=== PATIENT | male | born 1955 | race Caucasian/White ===

== ENCOUNTER 2018-01-02 20:04 | Observation (INO) | payer BC ==
[2018-01-02 20:50] LABS: Basophils % (A) 0 %; Eosinophils # (A) 0.4 k/uL (0-0.7); Eosinophils % (A) 4 %; HCT 42.4 % (39.0-53.0); HGB 13.7 gm/dL (13.0-17.5); Lymphocytes # (A) 2.3 k/uL (1.0-4.8); Lymphocytes % (A) 24 %; MCH 29.8 pg (25.0-35.0); MCHC 32.4 g/dL (31.0-37.0); MCV 91.9 fL (80.0-100.0); Mean Platelet Volume 7.4; Monocytes # (A) 0.5 k/uL (0-1.0); Monocytes % (A) 5 %; Neutrophils % (A) 65 %; Platelet Count 187 k/uL (150-450); RBC 4.62 m/uL (4.30-5.90); RDW 13.6 % (11.5-15.5); WBC 9.3 k/uL (3.8-10.6)
[2018-01-02 21:04] LABS: Creatine Kinase 122 U/L (55-170)
--- NOTE | 2018-01-02 21:05 | ED ---
General Adult HPI - General Source: patient, family, RN notes reviewed, old records reviewed Mode of arrival: ambulatory <Nikhil Greene - Last Filed: 01/02/18 21:06> <Joshua Palma - Last Filed: 01/02/18 23:22> - General Chief complaint: Chest Pain Stated complaint: Chest pain Time Seen by Provider: 01/02/18 20:08 - History of Present Illness Initial comments: This is a 60-year-old male the ER for evaluation of chest pain left shoulder pain. Patient has 3-4 days of persistent left shoulder pain neck pain and pain down left arm. Patient does have significant history of heart disease history of cardiac stents. Patient had no pain during any of his prior cardiac issues. Patient denies any other injury, no exacerbating factors for pain. No significant shortness of breath (Nikhil Greene) - Related Data Home Medications Medication Instructions Recorded Confirmed Acetaminophen [Tylenol Extra 1,000 mg PO Q6H PRN 01/02/18 01/02/18 Strength] Apixaban [Eliquis] 5 mg PO BID 01/02/18 01/02/18 Aspirin [Adult Low Dose Aspirin EC] 81 mg PO DAILY 01/02/18 01/02/18 Cholecalciferol (Vitamin D3) 2,000 unit PO DAILY 01/02/18 01/02/18 [Vitamin D3] Latanoprost Ophth [Xalatan 0.005%] 1 drops BOTH EYES HS 01/02/18 01/02/18 Metoprolol Tartrate [Lopressor] 100 mg PO BID 01/02/18 01/02/18 Nitroglycerin Sl Tabs [Nitrostat] 0.4 mg SUBLINGUAL Q5M PRN 01/02/18 01/02/18 Pantoprazole Sodium [Protonix] 40 mg PO DAILY 01/02/18 01/02/18 Rosuvastatin Calcium [Crestor] 5 mg PO DAILY 01/02/18 01/02/18 Allergies Allergy/AdvReac Type Severity Reaction Status Date / Time No Known Allergies Allergy Verified 01/02/18 20:54 Review of Systems ROS Other: All systems not noted in ROS Statement are negative. <Nikhil Greene - Last Filed: 01/02/18 21:06> ROS Other: All systems not noted in ROS Statement are negative. <Joshua Palma - Last Filed: 01/02/18 23:22> ROS Statement: Those systems with pertinent positive or pertinent negative responses have been documented in the HPI. Past Medical History Past Medical History: Coronary Artery Disease (CAD), Chest Pain / Angina Additional Past Medical History / Comment(s): brain tumor, kidney stones, open heart, History of Any Multi-Drug Resistant Organisms: None Reported Additional Past Surgical History / Comment(s): cardiac stents 05/25, open heart , atrial septal defect, Past Psychological History: No Psychological Hx Reported Smoking Status: Never smoker Past Alcohol Use History: Daily Past Drug Use History: None Reported <Nikhil Greene - Last Filed: 01/02/18 21:06> General Exam General appearance: alert, in no apparent distress Head exam: Present: atraumatic, normocephalic, normal inspection Eye exam: Present: normal appearance, PERRL, EOMI. Absent: scleral icterus, conjunctival injection, periorbital swelling ENT exam: Present: normal exam, mucous membranes moist Neck exam: Present: normal inspection. Absent: tenderness, meningismus, lymphadenopathy Respiratory exam: Present: normal lung sounds bilaterally. Absent: respiratory distress, wheezes, rales, rhonchi, stridor Cardiovascular Exam: Present: regular rate, normal rhythm, normal heart sounds. Absent: systolic murmur, diastolic murmur, rubs, gallop, clicks GI/Abdominal exam: Present: soft, normal bowel sounds. Absent: distended, tenderness, guarding, rebound, rigid Extremities exam: Present: normal inspection, full ROM, normal capillary refill. Absent: tenderness, pedal edema, joint swelling, calf tenderness Back exam: Present: normal inspection Neurological exam: Present: alert, oriented X3, CN II-XII intact Psychiatric exam: Present: normal affect, normal mood Skin exam: Present: warm, dry, intact, normal color. 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 fib rate of 64, QRS 90, QTc 431 <Nikhil Greene - Last Filed: 01/02/18 21:06> Medical Decision Making - Lab Data Result diagrams: 01/02/18 20:42 <Nikhil Greene - Last Filed: 01/02/18 21:06> - Lab Data Result diagrams: 01/02/18 20:42 01/02/18 20:42 <Joshua Palma - Last Filed: 01/02/18 23:22> - Medical Decision Making I receive this patient is a sign out, pending the results of his computed tomography scan. Following results I discussed with the patient, and the admitting physician and wrote admitting orders. (Joshua Palma) - Lab Data Lab Results 01/02/18 01/02/18 01/02/18 Range/Units 20:42 20:42 20:42 WBC 9.3 (3.8-10.6) k/uL RBC 4.62 (4.30-5.90) m/uL Hgb 13.7 (13.0-17.5) gm/dL Hct 42.4 (39.0-53.0) % MCV 91.9 (80.0-100.0) fL MCH 29.8 (25.0-35.0) pg MCHC 32.4 (31.0-37.0) g/dL RDW 13.6 (11.5-15.5) % Plt Count 187 (150-450) k/uL Neutrophils % 65 % Lymphocytes % 24 % Monocytes % 5 % Eosinophils % 4 % Basophils % 0 % Neutrophils # 6.0 (1.3-7.7) k/uL Lymphocytes # 2.3 (1.0-4.8) k/uL Monocytes # 0.5 (0-1.0) k/uL Eosinophils # 0.4 (0-0.7) k/uL Basophils # 0.0 (0-0.2) k/uL PT (9.0-12.0) sec INR (<1.2) APTT (22.0-30.0) sec D-Dimer (<0.60) mg/L FEU Sodium 142 (137-145) mmol/L Potassium 4.1 (3.5-5.1) mmol/L Chloride 110 H (98-107) mmol/L Carbon Dioxide 25 (22-30) mmol/L Anion Gap 7 mmol/L BUN 16 (9-20) mg/dL Creatinine 0.70 (0.66-1.25) mg/dL Est GFR (CKD-EPI)AfAm >90 (>60 ml/min/1.73 sqM) Est GFR (CKD-EPI)NonAf >90 (>60 ml/min/1.73 sqM) Glucose 116 H (74-99) mg/dL Calcium 8.9 (8.4-10.2) mg/dL Magnesium 2.0 (1.6-2.3) mg/dL Total Bilirubin 1.7 H (0.2-1.3) mg/dL AST 35 (17-59) U/L ALT 38 (21-72) U/L Alkaline Phosphatase 74 (38-126) U/L Total Creatine Kinase 122 (55-170) U/L CK-MB (CK-2) 1.3 (0.0-2.4) ng/mL CK-MB (CK-2) Rel Index 1.1 Troponin I <0.012 (0.000-0.034) ng/mL Total Protein 6.3 (6.3-8.2) g/dL Albumin 4.0 (3.5-5.0) g/dL Lipase 90 (23-300) U/L 01/02/18 Range/Units 20:42 WBC (3.8-10.6) k/uL RBC (4.30-5.90) m/uL Hgb (13.0-17.5) gm/dL Hct (39.0-53.0) % MCV (80.0-100.0) fL MCH (25.0-35.0) pg MCHC (31.0-37.0) g/dL RDW (11.5-15.5) % Plt Count (150-450) k/uL Neutrophils % % Lymphocytes % % Monocytes % % Eosinophils % % Basophils % % Neutrophils # (1.3-7.7) k/uL Lymphocytes # (1.0-4.8) k/uL Monocytes # (0-1.0) k/uL Eosinophils # (0-0.7) k/uL Basophils # (0-0.2) k/uL PT 10.4 (9.0-12.0) sec INR 1.1 (<1.2) APTT 26.2 (22.0-30.0) sec D-Dimer <0.17 (<0.60) mg/L FEU Sodium (137-145) mmol/L Potassium (3.5-5.1) mmol/L Chloride (98-107) mmol/L Carbon Dioxide (22-30) mmol/L Anion Gap mmol/L BUN (9-20) mg/dL Creatinine (0.66-1.25) mg/dL Est GFR (CKD-EPI)AfAm (>60 ml/min/1.73 sqM) Est GFR (CKD-EPI)NonAf (>60 ml/min/1.73 sqM) Glucose (74-99) mg/dL Calcium (8.4-10.2) mg/dL Magnesium (1.6-2.3) mg/dL Total Bilirubin (0.2-1.3) mg/dL AST (17-59) U/L ALT (21-72) U/L Alkaline Phosphatase (38-126) U/L Total Creatine Kinase (55-170) U/L CK-MB (CK-2) (0.0-2.4) ng/mL CK-MB (CK-2) Rel Index Troponin I (0.000-0.034) ng/mL Total Protein (6.3-8.2) g/dL Albumin (3.5-5.0) g/dL Lipase (23-300) U/L Disposition <Nikhil Greene - Last Filed: 01/02/18 21:06> Time of Disposition: 23:11 <Joshua Palma - Last Filed: 01/02/18 23:22> Clinical Impression: Chest pain Disposition: ADMITTED IP TO THIS HOSP Condition: Good Instructions: Chest Pain (ED) Referrals: None,Stated [Primary Care Provider] - 1-2 days
[2018-01-02 21:06] LABS: ALT 38 U/L (21-72); AST 35 U/L (17-59); Alkaline Phosphatase 74 U/L (38-126); Anion Gap 7 mmol/L; Blood Urea Nitrogen 16 mg/dL (9-20); Calcium 8.9 mg/dL (8.4-10.2); Carbon Dioxide 25 mmol/L (22-30); Chloride 110 mmol/L (98-107); D-Dimer <0.17 mg/L FEU (<0.60); Glucose 116 mg/dL (74-99); INR 1.1 (<1.2); Lipase 90 U/L (23-300); Partial Thromboplastin Time 26.2 sec (22.0-30.0); Potassium 4.1 mmol/L (3.5-5.1); Prothrombin Time 10.4 sec (9.0-12.0); Sodium 142 mmol/L (137-145); Total Bilirubin 1.7 mg/dL (0.2-1.3); Total Protein 6.3 g/dL (6.3-8.2)
[2018-01-02 21:18] LABS: Creatine Kinase MB 1.3 ng/mL (0.0-2.4); Troponin I <0.012 ng/mL (0.000-0.034)
--- NOTE | 2018-01-02 21:28 | XR ---
EXAMINATION TYPE: XR chest 2V DATE OF EXAM: 01/02/2018 COMPARISON: NONE HISTORY: Chest pain TECHNIQUE: Frontal and lateral views of the chest are obtained. FINDINGS: There is no heart failure nor confluent pneumonic infiltrate. Costophrenic angles are nehemias r. There are sternal wires. There are chest leads. IMPRESSION: No active cardiopulmonary disease. No change.
--- NOTE | 2018-01-02 21:38 | CT ---
EXAMINATION TYPE: CT angio chest DATE OF EXAM: 01/02/2018 9:30 PM COMPARISON: None HISTORY: Chest pain radiating into left shoulder x3 days. CT DLP: 540.5 mGycm Automated exposure control for dose reduction was used. CONTRAST: CTA scan of the thorax is performed with IV Contrast, patient injected with 77ml mL of Isovue 370, pu lmonary embolism protocol. There are 3-D post processed images.. FINDINGS: The lungs are clear of consolidation. There is no evidence of a pulmonary mass. There is mild infiltr ate at the right posterior lung base. There is no pleural effusion. There is no pericardial effusion. Heart is enlarged. There are sternal wires. There is no evidence of aortic aneurysm or dissection. I see no filling defects in the pulmonary arteries. There is no mediastinal adenopathy. The bony thora x is intact. IMPRESSION: CARDIOMEGALY. MINIMAL INFILTRATE IN THE POSTERIOR RIGHT LOWER LOBE. NO EVIDENCE OF PULMONARY EMBOLISM . SMALL HIATAL HERNIA.
[2018-01-02] MEDS ORDERED: MORPHINE SULFATE 4 MG/ML SYRINGE IV STA (23:15)
[2018-01-02] MEDS ORDERED: NITROGLYCERIN SL TABS 0.4 MG TAB SUBLINGUAL PRN (23:19)
[2018-01-02] MEDS ORDERED: ACETAMINOPHEN TAB 500 MG TAB PO PRN (23:21)
[2018-01-03 01:13] VITALS: BMI 37.5
[2018-01-03] MEDS ORDERED: NALOXONE 0.4 MG/ML 1 ML VIAL IV PRN (01:37)
--- NOTE | 2018-01-03 01:37 | P.HPIM ---
History of Present Illness H&P Date: 01/02/18 Chief Complaint: Left shoulder pain 62-year-old male with history of CAD status post stents and chronic A. fib. Patient presented to the hospital with 3 day history of left shoulder pain that comes and goes throbbing dull pain that radiates to the elbow he denies any injuries or heavy lifting, over the past 3 days the patient has been responding to Tylenol with takes the edge off the pain however today he noticed that the pain is persistent and more severe which made him concerned regarding a heart attack. However he reports that in the past when he had the stents he never experienced any chest pain when he was diagnosed coronary artery disease. Patient denies any anginal symptoms. He currently denies any headache changes in his vision or hearing he denies any numbness or tingling in his hands or feet he denies any abdominal pain he denies any diarrhea or changes in his bowel habits or urinary habits. [place] and he has done quite a bit of driving over the past few days. He has history of chronic A. fib on Eliquis. He denies any GI bleeding. Review of Systems Pertinent positives as noted in HPI. All other systems were reviewed and are negative Past Medical History Past Medical History: Atrial Fibrillation, Coronary Artery Disease (CAD), Chest Pain / Angina Additional Past Medical History / Comment(s): benign brain tumor, kidney stones , open heart History of Any Multi-Drug Resistant Organisms: None Reported Additional Past Surgical History / Comment(s): cardiac stents 05/25, open heart , atrial septal defect, Past Anesthesia/Blood Transfusion Reactions: No Reported Reaction Past Psychological History: No Psychological Hx Reported Smoking Status: Former smoker Past Alcohol Use History: Daily Past Drug Use History: None Reported - Past Family History Father Family Medical History: Cancer, Hyperlipidemia, Hypertension, Myocardial Infarction ([place]) Mother Family Medical History: Hypertension Medications and Allergies Home Medications Medication Instructions Recorded Confirmed Type Acetaminophen [Tylenol Extra 1,000 mg PO Q6H PRN 01/02/18 01/02/18 History Strength] Apixaban [Eliquis] 5 mg PO BID 01/02/18 01/02/18 History Aspirin [Adult Low Dose Aspirin EC] 81 mg PO DAILY 01/02/18 01/02/18 History Cholecalciferol (Vitamin D3) 2,000 unit PO DAILY 01/02/18 01/02/18 History [Vitamin D3] Latanoprost Ophth [Xalatan 0.005%] 1 drops BOTH EYES HS 01/02/18 01/02/18 History Metoprolol Tartrate [Lopressor] 100 mg PO BID 01/02/18 01/02/18 History Nitroglycerin Sl Tabs [Nitrostat] 0.4 mg SUBLINGUAL Q5M PRN 01/02/18 01/02/18 History Pantoprazole Sodium [Protonix] 40 mg PO DAILY 01/02/18 01/02/18 History Rosuvastatin Calcium [Crestor] 5 mg PO DAILY 01/02/18 01/02/18 History Allergies Allergy/AdvReac Type Severity Reaction Status Date / Time No Known Allergies Allergy Verified 01/02/18 20:54 Physical Exam Vitals: Vital Signs Temp Pulse Pulse Resp BP Pulse Ox 01/02/18 23:52 97.6 F 68 18 153/72 98 01/02/18 23:18 64 18 165/79 97 01/02/18 22:04 63 18 166/77 99 01/02/18 21:26 97.6 F 73 18 163/75 99 01/02/18 20:46 71 01/02/18 20:09 97.8 F 71 20 168/70 99 Intake and Output 01/02/18 01/02/18 01/03/18 14:59 22:59 06:59 Other: Weight 125.464 kg 125.464 kg Constitutional: No acute distress, conversant, pleasant Eyes: Anicteric sclerae, moist conjunctiva, no lid-lag Pupils equal round reactive to light ENMT: NC/AT Oropharynx clear, no erythema, or exudates Neck: Supple, FROM, no masses, or JVD No carotid bruits No thyromegaly Lungs: Clear to auscultation Clear to percussion Normal respiratory effort, no accessory muscle use Cardiovascular: Heart regular in rate and rhythm, No murmurs, gallops, or rubs No peripheral edema Abdominal: Soft Nontender, no guarding, rebound or rigidity Abdomen moving with respiration Normoactive bowel sounds No hepatomegaly, No splenomegaly No palpable mass No abdominal wall hernia noted Skin: Normal temperature, tone, texture, turgor No induration No subcutaneous nodules No rash, lesions No ulcers Extremities: No digital cyanosis No clubbing Pedal pulses intact and symmetrical Radial pulses intact and symmetrical No calf tenderness Intact range of motion of the left shoulder, no point tenderness upon palpation Psychiatric: Alert and oriented to person, place and time Appropriate affect fair judgment Neuro Muscles Strength 5/5 in all 4 extremities Sensation to light touch grossly present throughout Cranial nerves II-XII grossly intact No focal sensory deficits Lymphatics: no palpable cervical or supraclavicular , or inguinal lymph nodes Results CBC & Chem 7: 01/02/18 20:42 01/02/18 20:42 Labs: Abnormal Lab Results - Last 24 Hours (Table) 01/02/18 Range/Units 20:42 Chloride 110 H (98-107) mmol/L Glucose 116 H (74-99) mg/dL Total Bilirubin 1.7 H (0.2-1.3) mg/dL Thrombosis Risk Factor Assmnt - Choose All That Apply Any of the Below Risk Factors Present?: Yes Each Factor Represents 1 point: Obesity (BMI >25), Swollen legs (current) Other Risk Factors: Yes Each Risk Factor Represents 2 Points: Age 61-74 years Thrombosis Risk Factor Assessment Total Risk Factor Score: 4 Thrombosis Risk Factor Assessment Level: Moderate Risk Assessment and Plan Assessment: 62 year old male with positive cardiac history s/p stents , admitted under observation with anticipated length of stay of <48 hours for left shoulder pain to r/o ACS Plan: Left shoulder pain, r/o ACS history of CAD s/p stents continue ASA, statin and metoprolol pain control cardiology consult PRN nitro SL morphine PRN follow up cardiac enzymes hall monitor chronic afib rate controlled ,on eliquis continue metoprolol hypertensive urgency BP control continue metoprolol start lisinopril DVT PPX on eliquis for Afib Surrogate decision-maker: Patient's Joleen CODE STATUS: Full code Discussed with: Patient, ER, RN Anticipated discharge: <48hours Anticipated discharge place: Home A total of 50 minutes was spent on the care of this complex patient more than 50 % of the time was spent in counseling and care coordination.
[2018-01-03 03:32] LABS: Cholesterol 125 mg/dL (<200); HDL Cholesterol 43 mg/dL (40-60); LDL Cholesterol,Calculated 65 mg/dL (0-99); Triglycerides 83 mg/dL (<150)
[2018-01-03 03:45] LABS: Creatine Kinase 98 U/L (55-170)
[2018-01-03 03:55] LABS: Creatine Kinase MB 1.2 ng/mL (0.0-2.4); Troponin I <0.012 ng/mL (0.000-0.034)
[2018-01-03] MEDS: PANTOPRAZOLE 40 MG TABLET PO SCH (06:54)
[2018-01-03] MEDS ORDERED: ASPIRIN 325 MG TAB PO SCH (09:00)
[2018-01-03] MEDS ORDERED: ATORVASTATIN 10 MG TAB PO SCH (09:00)
[2018-01-03] MEDS: CHOLECALCIFEROL 1,000 UNIT TAB PO SCH (09:02)
[2018-01-03] MEDS: APIXABAN 5 MG TAB PO SCH ×2 (09:02→20:15)
[2018-01-03] MEDS: LISINOPRIL 5 MG TAB PO SCH (09:03)
[2018-01-03] MEDS: METOPROLOL TARTRATE 50 MG TAB PO SCH ×2 (09:03→20:15)
[2018-01-03 09:40] LABS: Creatine Kinase 79 U/L (55-170)
[2018-01-03 09:52] LABS: Creatine Kinase MB 1.2 ng/mL (0.0-2.4); Troponin I <0.012 ng/mL (0.000-0.034)
--- NOTE | 2018-01-03 10:38 | P.PN ---
Progress Note - Text This is an addendum to the dictated cardiology consultation. The patient is visiting from [place], has a history of hypertension, persistent atrial fibrillation, post ASD repair, coronary artery disease status post stenting of the LAD and obtuse marginal branch in May 2017 who presents with symptoms of left scapula and arm tingling in discomfort going on for the last 3 days. His discomfort does not activity related and is worse at times while driving. He has no associated symptoms of dyspnea, dizziness or palpitations On physical examination his lungs are clear and he has no peripheral edema. He has mild discomfort in the left scapula. His EKG shows no acute ST segment changes and his troponins are normal. The patient presents with left shoulder and arm discomfort that has atypical feature for ischemic heart disease, probably noncardiac. I will obtain an echocardiogram with Doppler, increased he physical activity and observe him for 24 hours. If he has no further symptoms by tomorrow he may be able to be discharged home to undergo a stress test as an outpatient. Thank you for this consult we will follow with you.
--- NOTE | 2018-01-03 11:21 | P.CRDCN ---
History of Present Illness Consult date: 01/03/18 Requesting physician: Valdo Mcghee Reason for Consult (text): chest pain Chief complaint: left shoulder and arm pain History of present illness: This is a pleasant 62-year-old gentleman who resides in [place] he follows with a medical doctor nuclear medicine there by the name of Dr. Reyna. History of open heart surgery for repair of ASD in 1970, brain tumor removal in 2000 that was benign, prostate cancer status post removal, chronic atrial fibrillation, syncopal episode last year at which time he underwent stress testing that showed evidence of reversible ischemia and subsequently underwent cardiac catheterization 05/30/2017. He also has a history of obstructive sleep apnea for which he wears a CPAP. According to the patient, 3 blockages were found, only 2 stents were done. He has been traveling with his and doing a lot of driving. Over the last 3 days he spent complaining of left posterior shoulder pain that radiated towards his apical and down the left arm to the elbow with some tingling in the left arm elbow to fingertips. Initially Tylenol helped relieve some of the discomfort over the last day or so there've been no relieving factors. There are no exacerbating factors and no associated symptoms. EKG on admission showed atrial fibrillation with a controlled ventricular response. Chest x-ray showed no active cardiopulmonary disease. CT of the chest showed minimal infiltrate in the posterior right lower lobe, no evidence of pulmonary embolism, small hiatal hernia. Blood pressure has been elevated 160s over 80s, he has been afebrile and heart rate has been normal. Upon review of laboratory value values showed normal CBC, potassium 4.1, BUN 16 , creatinine 0.7, troponin less than 0.0123, total cholesterol 125 and LDL 65. He is currently on Eliquis I milligrams by mouth twice a day, aspirin 81 mg by mouth daily, Crestor 5 mg by mouth daily, lisinopril 5 mg by mouth daily, metoprolol tartrate 100 mg by mouth twice a day and Protonix 40 mg by mouth daily. Upon examination, patient is resting comfortably in bed. He does continue to complain of some posterior left shoulder pain and left arm pain. No other symptoms at this time. He denies complaints of dizziness, lightheadedness, syncope, shortness of breath, palpitations or edema. Past Medical History Past Medical History: Atrial Fibrillation, Coronary Artery Disease (CAD), Chest Pain / Angina Additional Past Medical History / Comment(s): benign brain tumor, kidney stones , open heart History of Any Multi-Drug Resistant Organisms: None Reported Additional Past Surgical History / Comment(s): cardiac stents 05/25, open heart , atrial septal defect, Past Anesthesia/Blood Transfusion Reactions: No Reported Reaction Past Psychological History: No Psychological Hx Reported Smoking Status: Former smoker Past Alcohol Use History: Daily Past Drug Use History: None Reported - Past Family History Father Family Medical History: Cancer, Hyperlipidemia, Hypertension, Myocardial Infarction ([place]) Mother Family Medical History: Hypertension Medications and Allergies Home Medications Medication Instructions Recorded Confirmed Type Acetaminophen [Tylenol Extra 1,000 mg PO Q6H PRN 01/02/18 01/02/18 History Strength] Apixaban [Eliquis] 5 mg PO BID 01/02/18 01/02/18 History Aspirin [Adult Low Dose Aspirin EC] 81 mg PO DAILY 01/02/18 01/02/18 History Cholecalciferol (Vitamin D3) 2,000 unit PO DAILY 01/02/18 01/02/18 History [Vitamin D3] Latanoprost Ophth [Xalatan 0.005%] 1 drops BOTH EYES HS 01/02/18 01/02/18 History Metoprolol Tartrate [Lopressor] 100 mg PO BID 01/02/18 01/02/18 History Nitroglycerin Sl Tabs [Nitrostat] 0.4 mg SUBLINGUAL Q5M PRN 01/02/18 01/02/18 History Pantoprazole Sodium [Protonix] 40 mg PO DAILY 01/02/18 01/02/18 History Rosuvastatin Calcium [Crestor] 5 mg PO DAILY 01/02/18 01/02/18 History Allergies Allergy/AdvReac Type Severity Reaction Status Date / Time No Known Allergies Allergy Verified 01/02/18 20:54 Physical Exam Vitals: Vital Signs Temp Pulse Pulse Resp BP BP Pulse Ox 01/03/18 08:00 98.3 F 70 16 143/75 98 01/03/18 03:47 97.0 F L 55 L 16 166/86 98 01/02/18 23:52 97.6 F 68 18 153/72 98 01/02/18 23:18 64 18 165/79 97 01/02/18 22:04 63 18 166/77 99 07/27/18 21:26 97.6 F 73 18 163/75 99 01/02/18 20:46 71 01/02/18 20:09 97.8 F 71 20 168/70 99 Intake and Output 01/02/18 01/03/18 01/03/18 22:59 06:59 14:59 Other: Weight 125.464 kg 126.1 kg PHYSICAL EXAMINATION: HEENT: Head is atraumatic, normocephalic. Pupils equal, round. Neck is supple. There is no elevated jugular venous pressure. HEART EXAMINATION: Heart sounds regular regular, S1 and S2 normal. No murmur or gallop heard. CHEST EXAMINATION: Lungs are clear to auscultation and precussion. No chest wall tenderness is noted on palpation or with deep breathing. ABDOMEN: Soft, nontender. Bowel sounds are heard. No organomegaly noted. EXTREMITIES: 2+ peripheral pulses with evidence of trace right peripheral edema and no calf tenderness noted. NEUROLOGIC patient is awake, alert and oriented x3. . Results 01/02/18 20:42 01/02/18 20:42 Cardiac Enzymes 01/02/18 01/02/18 01/03/18 Range/Units 20:42 20:42 02:35 AST 35 (17-59) U/L CK-MB (CK-2) 1.3 1.2 (0.0-2.4) ng/mL Troponin I <0.012 <0.012 (0.000-0.034) ng/mL Coagulation 01/02/18 Range/Units 20:42 PT 10.4 (9.0-12.0) sec APTT 26.2 (22.0-30.0) sec Lipids 01/03/18 Range/Units 02:35 Triglycerides 83 (<150) mg/dL Cholesterol 125 (<200) mg/dL HDL Cholesterol 43 (40-60) mg/dL CBC 01/02/18 Range/Units 20:42 WBC 9.3 (3.8-10.6) k/uL RBC 4.62 (4.30-5.90) m/uL Hgb 13.7 (13.0-17.5) gm/dL Hct 42.4 (39.0-53.0) % Plt Count 187 (150-450) k/uL Comprehensive Metabolic Panel 01/02/18 Range/Units 20:42 Sodium 142 (137-145) mmol/L Potassium 4.1 (3.5-5.1) mmol/L Chloride 110 H (98-107) mmol/L Carbon Dioxide 25 (22-30) mmol/L BUN 16 (9-20) mg/dL Creatinine 0.70 (0.66-1.25) mg/dL Glucose 116 H (74-99) mg/dL Calcium 8.9 (8.4-10.2) mg/dL AST 35 (17-59) U/L ALT 38 (21-72) U/L Alkaline Phosphatase 74 (38-126) U/L Total Protein 6.3 (6.3-8.2) g/dL Albumin 4.0 (3.5-5.0) g/dL Current Medications Generic Name Dose Route Start Last Admin Trade Name Freq PRN Reason Stop Dose Admin Acetaminophen 1,000 mg 01/02/18 23:21 01/03/18 06:56 Tylenol Tab PO 1,000 mg Q6H PRN Administration Pain Apixaban 5 mg 01/03/18 09:00 01/03/18 09:02 Eliquis PO 5 mg BID [facility] Administration Aspirin 325 mg 01/03/18 09:00 01/03/18 09:02 Aspirin PO 325 mg DAILY [facility] Administration Atorvastatin Calcium 10 mg 01/03/18 09:00 01/03/18 09:02 Lipitor PO 10 mg DAILY [facility] Administration Cholecalciferol 2,000 unit 01/03/18 09:00 01/03/18 09:02 Vitamin D3 PO 2,000 unit DAILY [facility] Administration Latanoprost 1 drops 01/03/18 21:00 Xalatan 0.005% BOTH EYES HS [facility] Lisinopril 5 mg 01/03/18 09:00 01/03/18 09:03 Zestril PO 5 mg DAILY [facility] Administration Metoprolol Tartrate 100 mg 01/03/18 09:00 01/03/18 09:03 Lopressor PO 100 mg BID [facility] Administration Naloxone HCl 0.2 mg 01/03/18 01:37 Narcan IV Q2M PRN Opioid Reversal Nitroglycerin 0.4 mg 01/02/18 23:19 Nitrostat SUBLINGUAL Q5M PRN Chest Pain Pantoprazole Sodium 40 mg 01/03/18 07:30 01/03/18 06:54 Protonix PO 40 mg [id number]-[id number] [facility] Administration Intake and Output 01/02/18 01/03/18 01/03/18 22:59 06:59 14:59 Other: Weight 125.464 kg 126.1 kg 01/02/18 20:42 01/02/18 20:42 Assessment and Plan Assessment: #1 symptoms of left shoulder and arm pain in a patient with known CAD #2 history of PCI of the OM and LAD in May 2017, currently on Eliquis and aspirin #3 hypertension #4 history of ASD repair in 1970 #5 history of prostate cancer, status post removal #6 hyperlipidemia Plan: From cardiology's perspective, we'll obtain a 2-D echo with Doppler. We will increase his activity. Depending on symptoms, may do stress test as outpatient or inpatient. Further recommendations to follow. CAM MAKER note has been reviewed, I agree with a documented findings and plan of care. Patient was seen and examined.
--- NOTE | 2018-01-03 15:06 | P.PN ---
Subjective Progress Note Date: 01/03/18 Patient doing well denies any chest pain, does complain of left interscapular pain with radiation to his forearm described as paresthesias, is of a history of lumbar disc disease. Denies any shortness of breath, no acute events overnight Objective - Vital Signs Vital signs: Vital Signs Temp 98.7 F 01/03/18 11:08 Pulse 63 01/03/18 11:21 Resp 16 01/03/18 11:08 BP 147/79 01/03/18 11:08 Pulse Ox 98 01/03/18 11:08 Intake & Output 01/02/18 01/03/18 01/03/18 18:59 06:59 18:59 Intake Total 360 Balance 360 Weight 126.1 kg Intake: Oral 360 Other: # Voids 1 - Exam Constitutional: No acute distress, conversant, pleasant Eyes: Anicteric sclerae, moist conjunctiva, no lid-lag, PERRLA ENMT: NC/AT,Oropharynx clear, no erythema, exudates Neck:Supple, FROM, no masses, or JVD, No carotid bruits; No thyromegaly Lungs: Clear to auscultation, Clear to percussion, Normal respiratory effort, no accessory muscle use Cardiovascular: Heart regular in rate and rhythm, No murmurs, gallops, or rubs no peripheral edema Abdominal: Soft Nontender, nom distended, no guarding, no rebound or rigidity, Normoactive bowel sounds No hepatomegaly, No splenomegaly, No palpable mass No abdominal wall hernia noted Skin: Normal temperature, tone, texture, turgor, No induration No subcutaneous nodules, No rash, lesions, No ulcers Extremities:No digital cyanosis No clubbing, Pedal pulses intact and symmetrical Radial pulses intact and symmetrical Normal gait and station, No calf tenderness Psychiatric: Alert and oriented to person, place and time, Appropriate affect Intact judgement Neuro: Muscles Strength 5/5 in all 4 extremities, Sensation to light touch grossly present throughout, Cranial nerves II-XII grossly intact. No focal sensory deficits - Labs CBC & Chem 7: 01/02/18 20:42 01/02/18 20:42 Labs: Abnormal Lab Results - Last 24 Hours (Table) 01/02/18 Range/Units 20:42 Chloride 110 H (98-107) mmol/L Glucose 116 H (74-99) mg/dL Total Bilirubin 1.7 H (0.2-1.3) mg/dL Assessment and Plan (1) Atypical chest pain Narrative/Plan: * No true chest pain more left interscapular pain in patient with coronary disease * Troponins have been negative 3, EKG with no signs of acute ischemia * Echocardiogram ordered * Appreciate cardiology recommendations, continue to observe patient * Continue medications with eliquis and aspirin Current Visit: Yes Status: Acute Code(s): R07.89 - OTHER CHEST PAIN SNOMED Code(s): 834087999 (2) Presence of stent in coronary artery in patient with coronary artery disease Narrative/Plan: * Appears stable * Continue current therapy with. Antiplatelet therapy with aspirin, continue beta luis miguel metoprolol Current Visit: Yes Status: Acute Code(s): I25.10 - ATHSCL HEART DISEASE OF [place] CORONARY ARTERY W/O ANG PCTRS; Z95.5 - PRESENCE OF CORONARY ANGIOPLASTY IMPLANT AND GRAFT SNOMED Code(s): 813770359 (3) Hypertensive urgency Narrative/Plan: * Now resolved * Continue to monitor Current Visit: Yes Status: Acute Code(s): I16.0 - HYPERTENSIVE URGENCY SNOMED Code(s): 940569406 (4) Chronic a-fib Narrative/Plan: * Echocardiogram pending, continue beta luis miguel and anticoagulation with eliquis Current Visit: Yes Status: Acute Code(s): I48.2 - CHRONIC ATRIAL FIBRILLATION SNOMED Code(s): 214809047 (5) Dyslipidemia Current Visit: Yes Status: Acute Code(s): E78.5 - HYPERLIPIDEMIA, UNSPECIFIED SNOMED Code(s): 938776322 (6) Pain of left scapula Narrative/Plan: * History of lumbar disc disease, we'll order x-rays of the cervical and thoracic spine * We'll start gabapentin for pain Current Visit: Yes Status: Acute Code(s): M89.8X1 - OTHER SPECIFIED DISORDERS OF BONE, SHOULDER SNOMED Code(s): 71158274 Plan: Disposition anticipate discharge tomorrow
--- NOTE | 2018-01-03 15:11 | ECHOF ---
Referral Reason:chest pain MEASUREMENTS -------- HEIGHT: 180.3 cm WEIGHT: 126.1 kg BP: 143/75 RVIDd: 3.4 cm (< 3.3) IVSd: 1.0 cm (0.6 - 1.1) LVIDd: 4.1 cm (3.9 - 5.3) LVPWd: 1.1 cm (0.6 - 1.1) IVSs: 1.5 cm LVIDs: 2.2 cm LVPWs: 2.2 cm Ao Diam: 3.9 cm (2.0 - 3.7) AV Cusp: 2.2 cm (1.5 - 2.6) LA Diam: 4.1 cm (2.7 - 3.8) MV EXCURSION: 18.395 mm (> 18.000) MV EF SLOPE: 172 mm/s (70 - 150) EPSS: 0.3 cm MV E Ramesh: 0.98 m/s MV DecT: 286 ms MV A Ramesh: 0.30 m/s MV E/A Ratio: 3.29 RAP: 5.00 mmHg RVSP: 27.49 mmHg FINDINGS -------- Atrial fibrillation. This was a technically difficult study with suboptimal views. The left ventricular size is normal. Left ventricular wall thickness is normal. Overall left vent ricular systolic function is low-normal with, an EF between 50 - 55 %. The right ventricle is mildly enlarged. The left atrium is mildly dilated. The right atrium is normal in size. Lumason used The aortic valve is trileaflet, and appears structurally normal. No aortic stenosis or regurgitation. There is trace mitral regurgitation. Trace tricuspid regurgitation present. There is no evidence of pulmonary hypertension. The right ventricular systolic pressure, as measured by Doppler, is 27.49mmHg. The pulmonic valve was not well visualized. There is no pulmonic regurgitation present. The aortic root size is normal. There is no pericardial effusion. CONCLUSIONS -------- 1. Atrial fibrillation. 2. This was a technically difficult study with suboptimal views. 3. The left ventricular size is normal. 4. Left ventricular wall thickness is normal. 5. Overall left ventricular systolic function is low-normal with, an EF between 50 - 55 %. 6. The right ventricle is mildly enlarged. 7. The left atrium is mildly dilated. 8. Lumason used 9. The aortic valve is trileaflet, and appears structurally normal. No aortic stenosis or regurgitati on. 10. There is trace mitral regurgitation. 11. Trace tricuspid regurgitation present. 12. There is no evidence of pulmonary hypertension. 13. The pulmonic valve was not well visualized. 14. There is no pulmonic regurgitation present. 15. The aortic root size is normal. 16. There is no pericardial effusion. INSURANCE VERIFIER: Laura Arauz RDCS
[2018-01-03] MEDS: GABAPENTIN 100 MG CAP PO SCH ×2 (15:44→20:15)
--- NOTE | 2018-01-03 16:29 | XR ---
EXAMINATION TYPE: XR cervical spine limited DATE OF EXAM: 01/03/2018 TECHNIQUE: Frontal and lateral views of the cervical spine are obtained. Odontoid view was also obtai elizabeth. HISTORY: Neck pain with paresthesias COMPARISON: None FINDINGS: There is straightening of the usual cervical lordosis. Mild multilevel degenerative change s are seen as anterior osteophytes, endplate sclerosis, and intervertebral disc space narrowing. Mild facet arthropathy and uncovertebral hypertrophy are also noted. The cervical spine is visualized in its entirety from C1 thru the top of T1 level, it is satisfactory in alignment without evidence of ac [place] fracture or dislocation. The pre-vertebral soft tissue appears within normal limits. The C1-C2 articulation is within normal limits on the open mouth view. IMPRESSION: No acute fracture or malalignment is seen in the cervical spine. Straightening of the us ual cervical lordosis that can relate to muscular strain/spasm. Mild multilevel degenerative disc dis ease.
--- NOTE | 2018-01-03 16:37 | XR ---
EXAMINATION TYPE: XR thoracic spine complete DATE OF EXAM: 01/03/2018 CLINICAL HISTORY: Back pain and shoulder pain TECHNIQUE: Frontal, lateral, and swimmer's view of thoracic spine are obtained. COMPARISON: None. FINDINGS: Thoracic spine show satisfactory alignment without evidence of acute fracture or dislocatio n. There are moderate multilevel degenerative changes of the thoracic spine with a few bridging oste ophytes, multilevel endplate sclerosis and intervertebral disc space narrowing. Vertebral body height s and disc space heights are preserved. Visualized ribs are unremarkable. Median sternotomy wires a nd cardiomegaly are partially visualized. IMPRESSION: No acute fracture or malalignment is seen in the thoracic spine. Moderate multilevel deg enerative changes of the thoracic spine.
[2018-01-03] MEDS ORDERED: LATANOPROST 0.005% OPHTH DROPS 2.5 ML BTL BOTH EYES SCH (21:00)
[2018-01-04] MEDS: PANTOPRAZOLE 40 MG TABLET PO SCH (06:30)
[2018-01-04 06:39] LABS: Basophils # (A) 0.1 k/uL (0-0.2); Basophils % (A) 1 %; Eosinophils # (A) 0.4 k/uL (0-0.7); Eosinophils % (A) 4 %; HCT 42.1 % (39.0-53.0); HGB 13.7 gm/dL (13.0-17.5); Lymphocytes # (A) 2.1 k/uL (1.0-4.8); Lymphocytes % (A) 26 %; MCH 30.3 pg (25.0-35.0); MCHC 32.6 g/dL (31.0-37.0); MCV 92.8 fL (80.0-100.0); Mean Platelet Volume 7.4; Monocytes # (A) 0.5 k/uL (0-1.0); Monocytes % (A) 6 %; Neutrophils # (A) 5.1 k/uL (1.3-7.7); Neutrophils % (A) 62 %; Platelet Count 160 k/uL (150-450); RBC 4.53 m/uL (4.30-5.90); RDW 13.5 % (11.5-15.5); WBC 8.4 k/uL (3.8-10.6)
[2018-01-04 06:50] LABS: Anion Gap 5 mmol/L; Blood Urea Nitrogen 15 mg/dL (9-20); Calcium 8.8 mg/dL (8.4-10.2); Carbon Dioxide 28 mmol/L (22-30); Chloride 107 mmol/L (98-107); Glucose 89 mg/dL (74-99); Potassium 4.1 mmol/L (3.5-5.1); Sodium 140 mmol/L (137-145)
[2018-01-04] MEDS ORDERED: ATORVASTATIN 40 MG TAB PO SCH (09:00)
[2018-01-04] MEDS ORDERED: ASPIRIN 81 MG PO SCH (09:00)
[2018-01-04 09:04] VITALS: BP 133/64; PULSE 87; RESP 16; TEMP 97.9
[2018-01-04] MEDS: CHOLECALCIFEROL 1,000 UNIT TAB PO SCH (09:26)
[2018-01-04] MEDS: APIXABAN 5 MG TAB PO SCH (09:26)
[2018-01-04] MEDS: LISINOPRIL 5 MG TAB PO SCH (09:26)
[2018-01-04] MEDS: METOPROLOL TARTRATE 50 MG TAB PO SCH (09:26)
[2018-01-04] MEDS: GABAPENTIN 100 MG CAP PO SCH (09:26)
--- NOTE | 2018-01-04 10:14 | P.DS ---
Providers Date of admission: 01/02/18 23:19 Expected date of discharge: 01/04/18 Attending physician: Valdo Mcghee MD Consults: 01/02/18 23:19 Consult Physician Routine Consulting Provider: Gabriel Barragan Consult Reason/Comments: chest pain Do you want consulting provider notified?: Yes Primary care physician: Stated None - Discharge Diagnosis(es) (1) Atypical chest pain Current Visit: Yes Status: Acute (2) Presence of stent in coronary artery in patient with coronary artery disease Current Visit: Yes Status: Acute (3) Hypertensive urgency Current Visit: Yes Status: Acute (4) Chronic a-fib Current Visit: Yes Status: Acute (5) Dyslipidemia Current Visit: Yes Status: Acute (6) Pain of left scapula Current Visit: Yes Status: Acute Hospital Course: The patient is a 62-year-old male with a past medical history of coronary artery disease with stenting that presented with atypical chest pain found to be due to the left medial interscapular pain. He was placed on observation to rule out ACS, his initial and subsequent EKG and cardiac enzymes were negative for any sedation of any acute ischemia. The patient had a CTA that was negative for PE, echocardiogram showed persistent A. fib with ejection fraction of between 50-55% with a mildly dilated left atrium. The patient was continued on his home anticoagulation with Eliquis and continued on his home beta luis miguel therapy with metoprolol , he was started on lisinopril and continued on antiplatelet therapy with aspirin. Given the nature of his pain I suspect that the patient might be having some referred pain due to thoracic osteoarthritis as seen on thoracic spine x-rays described as moderate multilevel degenerative disease. The patient was initiated on gabapentin with great relief of his interscapular pain. He was subsequently discharged home in stable condition and instructed to follow-up with his PCP. This discharge process took approximately 30 minutes New prescriptions at discharge Lisinopril Gabapentin Patient Condition at Discharge: Good Plan - Discharge Summary Discharge Rx Participant: No New Discharge Prescriptions: New Gabapentin [Neurontin] 100 mg PO TID #90 cap Lisinopril [Zestril] 5 mg PO DAILY #30 tab Continue Rosuvastatin Calcium [Crestor] 5 mg PO DAILY Nitroglycerin Sl Tabs [Nitrostat] 0.4 mg SUBLINGUAL Q5M PRN PRN Reason: Chest Pain Metoprolol Tartrate [Lopressor] 100 mg PO BID Latanoprost Ophth [Xalatan 0.005%] 1 drops BOTH EYES HS Apixaban [Eliquis] 5 mg PO BID Pantoprazole Sodium [Protonix] 40 mg PO DAILY Cholecalciferol (Vitamin D3) [Vitamin D3] 2,000 unit PO DAILY Aspirin [Adult Low Dose Aspirin EC] 81 mg PO DAILY Acetaminophen [Tylenol Extra Strength] 1,000 mg PO Q6H PRN PRN Reason: Pain Discharge Medication List Acetaminophen [Tylenol Extra Strength] 1,000 mg PO Q6H PRN 01/02/18 [History] Apixaban [Eliquis] 5 mg PO BID 01/02/18 [History] Aspirin [Adult Low Dose Aspirin EC] 81 mg PO DAILY 01/02/18 [History] Cholecalciferol (Vitamin D3) [Vitamin D3] 2,000 unit PO DAILY 01/02/18 [History] Latanoprost Ophth [Xalatan 0.005%] 1 drops BOTH EYES HS 01/02/18 [History] Metoprolol Tartrate [Lopressor] 100 mg PO BID 01/02/18 [History] Nitroglycerin Sl Tabs [Nitrostat] 0.4 mg SUBLINGUAL Q5M PRN 01/02/18 [History] Pantoprazole Sodium [Protonix] 40 mg PO DAILY 01/02/18 [History] Rosuvastatin Calcium [Crestor] 5 mg PO DAILY 01/02/18 [History] Gabapentin [Neurontin] 100 mg PO TID #90 cap 01/04/18 [Rx] Lisinopril [Zestril] 5 mg PO DAILY #30 tab 01/04/18 [Rx] Follow up Appointment(s)/Referral(s): None,Stated [Primary Care Provider] - 1-2 days Patient Instructions/Handouts: Chest Pain (ED)
== END 2018-01-04 11:21 | disposition home or self-care (01) ==
LOC: EC 20:04 → 6SEL 23:19
PROVIDERS: ADMIT Internal Medicine; ATTEND Internal Medicine
DX: R07.89 Other chest pain (principal); I16.0 Hypertensive urgency; M25.512 Pain in left shoulder; I48.2 Chronic atrial fibrillation; I48.1 Persistent atrial fibrillation; I25.10 Atherosclerotic heart disease of native coronary artery without angina pectoris; I10 Essential (primary) hypertension; Z72.89 Other problems related to lifestyle; R20.2 Paresthesia of skin; M79.602 Pain in left arm; E78.5 Hyperlipidemia, unspecified; M47.814 Spondylosis without myelopathy or radiculopathy, thoracic region; E66.9 Obesity, unspecified; Z68.37 Body mass index [BMI] 37.0-37.9, adult; M79.89 Other specified soft tissue disorders; G47.33 Obstructive sleep apnea (adult) (pediatric); Z99.89 Dependence on other enabling machines and devices; M51.9 Unspecified thoracic, thoracolumbar and lumbosacral intervertebral disc disorder; M50.30 Other cervical disc degeneration, unspecified cervical region; Z95.5 Presence of coronary angioplasty implant and graft; Z87.891 Personal history of nicotine dependence; Z79.01 Long term (current) use of anticoagulants; Z79.82 Long term (current) use of aspirin; Z79.899 Other long term (current) drug therapy; Z87.74 Personal history of (corrected) congenital malformations of heart and circulatory system; Z86.011 Personal history of benign neoplasm of the brain; Z85.46 Personal history of malignant neoplasm of prostate; Z87.442 Personal history of urinary calculi; Z82.49 Family history of ischemic heart disease and other diseases of the circulatory system; Z83.49 Family history of other endocrine, nutritional and metabolic diseases
CPT/HCPCS: 99285 ×2; 96374 ×2; 36415; 93005; 93306; 85379; 80061; 80053; 80048; 82550 ×2; 82553 ×2; 83690; 83735; 84484 ×2; 85025 ×2; 85610; 85730; 72072; 72040; 71046; 71275; G0378 ×3; J2270; Q9950; Q9967